=== PATIENT | male | born 2000 | race Caucasian/White ===

== ENCOUNTER 2018-10-05 09:15 | Emergency (ER) | payer OTHER ==
[~2018-10-05] VITALS: Ht 172.7 cm; Wt 54.4 kg
--- OUTSIDE RECORDS SUMMARY | ~2018-10-05 | XMS | Clinical Summary ---
Demographics + + + | Address | [address] | | | [place] [address] | + + + | Home Phone | | + + + | Preferred Language | Unknown | + + + | Marital Status | Single | + + + | Church Affiliation | Unknown | + + + | Race | Unknown | + + + | Ethnic Group | Unknown | + + + Author + + + | Author | [facility] | | | and [place] | + + + | Organization | [facility] | | | and [place] | + + + | Address | Unknown | + + + | Phone | Unavailable | + + + Support + + +---------+ + | Name | Relationship | Address | Phone | + + +---------+ + | Fidelia Brown | ECON | Unknown | | + + +---------+ + | Seven Brown | ESTRELLA | Unknown | | + + +---------+ + Care Team Providers + +------+ + | Care Digital Design Engineer Name | Role | Phone | + +------+ + | Amarilys Antoine | PP | Unavailable | + +------+ + Allergies Not on File Medications Not on file Active Problems Not on file Social History + +-------+ +--------+------+ | Tobacco Use | Types | Packs/Day | Years | Date | | | | | Used | | + +-------+ +--------+------+ | Never Assessed | | | | | + +-------+ +--------+------+ + + + | Sex Assigned at | Date Recorded | | | | + + + | Not on file | | + + + + + + + | Job Start Date | Occupation | Industry | + + + + | Not on file | Not on file | Not on file | + + + + + + + + | Travel History | Travel Start | Travel End | + + + + + + | No recent travel history available. | + + Plan of Treatment + + + + + | Health Maintenance | Due Date | Last Done | Comments | + + + + + | Well Child Check | | | | | | 2 | | | + + + + + | Vaccine: HPV (1 - | | | | | Male 3-dose series) | 4 | | | + + + + + | Vaccine: | | | | | Dtap/Tdap/Td (1 - | 8 | | | | Tdap) | | | | + + + + + | Vaccine: Influenza | | | | | (Season Ended) | 9 | | | + + + + + Results Not on filefrom Last 3 Months Insurance + +--------+ +--------+ +---------+--------+ | Payer | Benefi | Subscriber | Effect | Phone | Address | Type | | | t Plan | ID | timmy | | | | | | / | | Dates | | | | | | Group | | | | | | + +--------+ +--------+ +---------+--------+ | [employer] | PHP | [id number] | 06/16/19 | [phone] | | PPO | | PLAN | PEBB | | 18-Pre | 5 | | | | | PROV | | sent | | | | | | CHOICE | | | | | | + +--------+ +--------+ +---------+--------+ | [employer] [place] | MEDICA | [id number] | | [phone] | | Med[place] | | | [place] | | 018-Pr | 2 | | id | | | PLUS | | esent | | | | + +--------+ +--------+ +---------+--------+ + +--------+ +--------+ + + | Guarantor Name | Accoun | Relation to | Date | Phone | Billing Address | | | t Type | Patient | of | | | | | | | | | | + +--------+ +--------+ + + | Tonio Brown | Person | Self | [birth year] | [address] | | | al/[place] | | 2000 | [phone] | [place] [address] | | | suzy | | | 4 (Home) | | + +--------+ +--------+ + + Advance Directives Patient has advance care planning documents on file. For more information, please contact:[facility] [address]"
--- OUTSIDE RECORDS SUMMARY | ~2018-10-05 | XMS | Clinical Summary ---
Demographics + + + | Address | [address] | | | [place] [address] | + + + | Home Phone | | + + + | Preferred Language | Unknown | + + + | Marital Status | Single | + + + | Taoism Affiliation | Unknown | + + + | Race | Unknown | + + + | Ethnic Group | Unknown | + + + Author + + + | Author | [facility] | | | and [place] | + + + | Organization | [facility] | | | [...] Team Providers + +------+ + | Care Sports Management Internship Name | Role | Phone | + [...] +---------+--------+ | [employer] [facility] | PHP | [phone] | 06/16/19 | [phone] | | PPO | | PLAN | PEBB | | 18-Pre | 5 | | | | | PROV | | sent | | | | | | CHOICE | | | | | | + +--------+ +--------+ +---------+--------+ | [employer] [place] | MEDICA | [id number] | | [phone] | | Medica | | | ID [...] al/[place]uro | | 2000 | [phone] | [place] [address] | | | suzy | | | 4 (Home) | | + +--------+ +--------+ + + Advance Directives Patient has advance care planning documents on file. For more information, please contact:[facility] [place] [address]"
[2018-10-05] MEDS ORDERED: ALBUTEROL2.5 MG/3 M INH (09:41)
[2018-10-05] MEDS ORDERED: HYDROXYZINE HCL25 MG PO (10:24)
== END 2018-10-05 10:30 | disposition home or self-care (01) ==
LOC: ED 09:15
DX: F41.0 Panic disorder [episodic paroxysmal anxiety] (principal); J45.909 Unspecified asthma, uncomplicated
CPT/HCPCS: 99284; Q0177

== ENCOUNTER 2020-07-27 22:27 | Emergency (ER) | payer OTHER ==
[~2020-07-27] VITALS: Ht 172.7 cm; Wt 54.4 kg
[~2020-07-27 22:27] MED LIST: ALBUTEROL2.5 MG/3 M INH; HYDROXYZINE HCL25 MG PO
[2020-07-27] MEDS ORDERED: BUSPIRONE HCL5 MG PO (22:39)
== END 2020-07-27 23:08 | disposition home or self-care (01) ==
LOC: ED 22:27
DX: Z04.1 Encounter for examination and observation following transport accident (principal); J45.909 Unspecified asthma, uncomplicated; Z79.899 Other long term (current) drug therapy
CPT/HCPCS: 99283